=== PATIENT | male | born 1960 | race African-American/Black ===

== ENCOUNTER 2023-01-20 22:03 | Emergency (ER) | payer MEDICAID ==
[~2023-01-20] VITALS: Ht 177.8 cm; Wt 73.0 kg
[2023-01-20 22:08] VITALS: BP 153/85
== END 2023-01-21 02:28 | disposition left against medical advice (07) ==
LOC: ER 22:03
DX: R10.9 Unspecified abdominal pain (principal); Z53.21 Procedure and treatment not carried out due to patient leaving prior to being seen by health care provider
CPT/HCPCS: 99281